=== PATIENT | female | born 2000 | race Caucasian/White ===

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

== ENCOUNTER 2019-07-13 11:50 | Outpatient (CLI) | payer BC ==
--- NOTE | 2019-07-13 13:39 | RAD ---
HIPS BILATERAL THREE TO FOUR VIEWS (FOUR IMAGES TOTAL): 07/13/19 INDICATION: Bilateral hip pain. FINDINGS: AP and frogleg lateral projections of both hips demonstrate a normal radiographic appearance without acute osseous abnormality. There is a mild amount of retained stool within the colon. SI joints are n ormal appearing. Symphysis pubis appears within normal limits. The visualized anterior pelvis appears within normal limits. IMPRESSION: Radiographically normal appearing right and left hip. POS: [facility]
== END 2019-07-13 11:51 | disposition home or self-care (01) ==
LOC: BICRAD 11:50
PROVIDERS: ATTEND Physician Assistant
DX: M25.551 Pain in right hip (principal); M25.552 Pain in left hip
CPT/HCPCS: 36415; 73522; 80053; 80061; 82306; 84443; 85025; 86900; 86901

== ENCOUNTER 2021-03-12 08:50 | Outpatient (CLI) | payer BC | END 2021-03-12 08:51 | disposition home or self-care (01) | LOC: CTENTCT 08:50 | PROVIDERS: ATTEND Otolaryngology Plastic Surgery within the Head & Neck | DX: J34.2 Deviated nasal septum (principal) | CPT/HCPCS: 70486 ==

== ENCOUNTER 2021-03-27 07:14 | Day surgery (SDC) | payer BC ==
[2021-03-22 16:14] VITALS: BMI 22.8
[2021-03-27] MEDS ORDERED: Midazolam HCl 2 mg/2 ml Vial ONE ×2 (08:18→08:47)
[2021-03-27] MEDS ORDERED: AFRIN NASAL MIST 15 ML BOT ONE ×2 (08:18→08:42)
[2021-03-27] MEDS ORDERED: Xylocaine 1% w/ Epi 1:100K 10 ML VIAL ONE (08:42)
[2021-03-27] MEDS ORDERED: Bacitracin Zinc Ointment 30 gm TUBE ONE (08:42)
[2021-03-27] MEDS ORDERED: Fentanyl 250 MCG/5 ML VIAL ONE ×2 (08:47→11:01)
[2021-03-27] MEDS ORDERED: Glycopyrrolate 0.2 MG/ML 5 ML SYRINGE ONE (09:10)
[2021-03-27] MEDS ORDERED: Rocuronium Bromide 10 MG/ML (10ML VIAL) ONE (09:10)
[2021-03-27] MEDS ORDERED: PROPOFOL 200 MG/20 ML VIAL ONE (09:10)
[2021-03-27] MEDS ORDERED: Ondansetron PF 4 MG/2 ML Vial ONE (09:10)
[2021-03-27] MEDS ORDERED: Dexamethasone 20 MG/5 ML VIAL ONE (09:10)
[2021-03-27] MEDS ORDERED: Lidocaine 1% PF 5 ML VIAL ONE (09:10)
[2021-03-27 09:21] LABS: BHCG - Serum Negative (NEGATIVE); Pregs Control Background? CLEAR/WHITE (CLR/WHITE); Pregs Control Bar Appear? YES (CONTROL BAR)
[2021-03-27] MEDS ORDERED: methylPREDNISolone Acetate 40 mg/ml Vial ONE (10:03)
[2021-03-27] MEDS ORDERED: Meperidine HCl/PF 25 MG/ML VIAL ONE (10:36)
[2021-03-27] MEDS ORDERED: Hydrocodone-Acetamin 15 ML UDCUP ONE (12:29)
== END 2021-03-27 13:40 | disposition home or self-care (01) ==
LOC: SDC 07:14
PROVIDERS: ATTEND Otolaryngology Plastic Surgery within the Head & Neck
PROC: 099T8ZZ Drainage of Left Frontal Sinus, Via Natural or Artificial Opening Endoscopic (ICD-10-PCS; principal; 2021-03-27)
PROC: 099S8ZZ Drainage of Right Frontal Sinus, Via Natural or Artificial Opening Endoscopic (ICD-10-PCS; principal; 2021-03-27)
PROC: 099Q8ZZ Drainage of Right Maxillary Sinus, Via Natural or Artificial Opening Endoscopic (ICD-10-PCS; principal; 2021-03-27)
PROC: 0CTPXZZ Resection of Tonsils, External Approach (ICD-10-PCS; principal; 2021-03-27)
PROC: 09TU8ZZ Resection of Right Ethmoid Sinus, Via Natural or Artificial Opening Endoscopic (ICD-10-PCS; principal; 2021-03-27)
PROC: 09TV8ZZ Resection of Left Ethmoid Sinus, Via Natural or Artificial Opening Endoscopic (ICD-10-PCS; principal; 2021-03-27)
PROC: 0CTQXZZ Resection of Adenoids, External Approach (ICD-10-PCS; principal; 2021-03-27)
PROC: 09SM0ZZ Reposition Nasal Septum, Open Approach (ICD-10-PCS; principal; 2021-03-27)
PROC: 099R8ZZ Drainage of Left Maxillary Sinus, Via Natural or Artificial Opening Endoscopic (ICD-10-PCS; principal; 2021-03-27)
PROC: 09TL0ZZ Resection of Nasal Turbinate, Open Approach (ICD-10-PCS; principal; 2021-03-27)
DX: J32.8 Other chronic sinusitis (principal); J34.2 Deviated nasal septum; J34.3 Hypertrophy of nasal turbinates; J34.89 Other specified disorders of nose and nasal sinuses; J35.03 Chronic tonsillitis and adenoiditis; J33.9 Nasal polyp, unspecified; J30.9 Allergic rhinitis, unspecified; Z79.2 Long term (current) use of antibiotics; Z79.3 Long term (current) use of hormonal contraceptives; Z88.0 Allergy status to penicillin
CPT/HCPCS: 84703; 85014; 88304; J1100; J2175; J2250; J2405; J2704; J2920; J3010